=== PATIENT | female | born 1970 | race Caucasian/White ===

== ENCOUNTER 2018-08-20 05:41 | Day surgery (SDC) | payer BC, OTHER ==
[2018-08-20] MEDS ORDERED: LIDOCAINE 1% MDV 20ML VIAL SQ (06:00)
[2018-08-20 06:52] LABS: CONTROL LINE UCG INT CTR LINE PRESENT; URINE PREG TEST NEGATIVE (NEGATIVE)
[2018-08-20] MEDS: LR 1,000 ML IV (06:55)
[2018-08-20] MEDS: SCOPOLAMINE 1MG TRANSDERMAL PATCH TOP (07:05)
[2018-08-20] MEDS ORDERED: PROPOFOL 200 MG/20 ML VIAL As Ordered ×2 (07:19→08:23)
[2018-08-20] MEDS ORDERED: LIDOCAINE 2% INJ 100 MG/5 ML SDV (FOR ANES.) As Ordered (07:19)
[2018-08-20] MEDS ORDERED: MIDAZOLAM INJ 2 MG/2 ML VIAL (J2250) As Ordered (07:20)
[2018-08-20] MEDS ORDERED: fentaNYL 100 MCG/2 ML INJECTION (J3010) As Ordered (07:20)
[2018-08-20] MEDS ORDERED: dexameTHASONE 4 MG/ML 1ML VIAL (J1100) As Ordered (08:04)
[2018-08-20] MEDS ORDERED: ONDANSETRON 4MG/2ML VIAL (J2405) As Ordered (08:04)
[2018-08-20] MEDS: LIDOCAINE 1% SDV INJ 30 ML VIAL As Ordered (08:15)
[2018-08-20] MEDS: BUPIVACAINE HCL 0.5% 10 ML VIAL As Ordered (08:15)
[2018-08-20] MEDS: dexameTHASONE 4 MG/ML 1ML VIAL (J1100) As Ordered (08:28)
[2018-08-20] MEDS ORDERED: PERCOCET 5MG/325MG TAB As Ordered (09:01)
[2018-08-20] MEDS: PERCOCET 5MG/325MG TAB PO (09:10)
[2018-08-20] MEDS ORDERED: ONDANSETRON 4MG/2ML VIAL (J2405) IV (09:15)
[2018-08-20] MEDS ORDERED: LR 1,000 ML IV (09:15)
== END 2018-08-20 10:05 | disposition home or self-care (01) ==
LOC: M SDC 05:41
DX: M20.11 Hallux valgus (acquired), right foot (principal); M20.41 Other hammer toe(s) (acquired), right foot; Z86.718 Personal history of other venous thrombosis and embolism; F31.9 Bipolar disorder, unspecified; E66.9 Obesity, unspecified; Z79.899 Other long term (current) drug therapy
CPT/HCPCS: 28298

== ENCOUNTER 2019-03-18 09:57 | Day surgery (SDC) | payer BC, OTHER ==
[~2019-03-18] VITALS: Ht 172.7 cm; Wt 146.9 kg
[~2019-03-18 09:57] MED LIST: ALPR0.5T6 PO; ARIP1TAB10 PO; CLOT1CRE2 TOP; D3 22000 PO; HYDR-3713 PO; IBUP200T45 PO; KETOROLAC 60 MG/2 ML VIAL (J1885) As Ordered ONE; LEXA5TAB13 PO; LIDOCAINE 2% INJ 100 MG/5 ML SDV (FOR ANES.) As Ordered ONE; LR 1,000 ML IV ONE; MIDAZOLAM INJ 2 MG/2 ML VIAL (J2250) As Ordered ONE; MULT1TAB10 PO; MULTCAP PO; NASC1SPR; ONDANSETRON 4MG/2ML VIAL (J2405) As Ordered ONE; OS-CTAB PO; PROP60CA PO; PROPOFOL 200 MG/20 ML VIAL As Ordered ONE; fentaNYL 100 MCG/2 ML INJECTION (J3010) As Ordered ONE
[2019-03-18 10:52] LABS: URINE PREG TEST NEGATIVE (NEGATIVE)
[2019-03-18] MEDS ORDERED: SCOPOLAMINE 1MG TRANSDERMAL PATCH As Ordered ONE (11:06)
[2019-03-18] MEDS ORDERED: LIDOCAINE 1% MDV 20ML VIAL As Ordered ONE (11:11)
[2019-03-18] MEDS ORDERED: BUPIVACAINE HCL 0.5% 10 ML VIAL As Ordered ONE (11:11)
[2019-03-18] MEDS ORDERED: dexameTHASONE 4 MG/ML 1ML VIAL (J1100) As Ordered ONE (11:11)
[2019-03-18] MEDS ORDERED: SCOPOLAMINE 1MG TRANSDERMAL PATCH TOP ONE (11:15)
[2019-03-18] MEDS ORDERED: LIDOCAINE 2% MDV 20 ML VIAL As Ordered ONE (12:06)
[2019-03-18] MEDS ORDERED: HYDR-3713 PO (13:25)
--- NOTE | 2019-03-18 13:42 | RO ---
DATE OF PROCEDURE: 03/18/2019 PREPROCEDURE DIAGNOSES: Right flexor hallucis longus tendon rupture, right second interspace neuroma, and fifth toe hammertoe. POSTPROCEDURE DIAGNOSES: Right flexor hallucis longus tendon rupture, right second interspace neuroma, and fifth toe hammertoe. PROCEDURE: Right flexor hallucis tendon repair with Artelon augmentation, second interspace neuroma excision and fifth toe flexor tenotomy. SURGEON: Ramo Meneses DPM [employer]IN[employer] LOCOMOTIVE OPERATOR: ANESTHESIA: Monitored anesthesia care, preoperative injection of 20 mL of 1:1 mixture of 1% lidocaine plain and 0.5% Marcaine plain. ESTIMATED BLOOD LOSS: Minimal. MATERIALS: 4-0 FiberWire, 3-0 and 4-0 Vicryl, 4-0 and 3-0 nylon, Artelon size 0.5 cm. COMPLICATIONS: None. CONDITION: Stable. SPECIMENS: Second interspace neuroma. DESCRIPTION OF PROCEDURE: Kimberly Beauchamp is a 49-year-old female who presents to [facility] with flexor hallucis longus tendon rupture. She also has painful neuroma between her second and third toes and a hammertoe on the fifth toe that causes pain. She presents today for surgical correction. Patient, side and site were identified and marked in preoperative holding area. Consent was reviewed and obtained. All risks, complications and alternatives to the procedure were explained to the patient in detail and all questions were answered. DESCRIPTION OF PROCEDURE: The patient was brought to the operating room and placed on the operating room table in supine position. Monitored anesthesia care was delivered by the anesthesia team. Preoperative injection of 20 mL of 1:1 mixture of 1% lidocaine plain and 0.5% Marcaine plain was injected into the right foot. Right foot was prepped and drape in a sterile fashion. Tourniquet was applied to her ankle and inflated to 235 mmHg. Attention was first pad to the fifth toe. A stab incision was made under the inferior portion of the fifth toe and the flexor tendon was released using 15-blade. Improved position of the toe was noted. This incision was repaired with 4-0 nylon. Attention was paid to the second interspace. Dorsal incision was drawn at this location with 15 blade. Dissection was carried down until the metatarsal ligament was identified. This was transected. Bovie was used to cauterize small bleeding vessels along the way. The nerve was identified and cut both at its distal and proximal sections at the interspace and this was sent for pathology. Site was irrigated with normal saline. Deep closure was performed with 4-0 Vicryl and skin closure with 4-0 nylon. Attention was then paid to the hallux. Plantar incision was made using a 15 blade. The distal portion of the flexor tendon was identified, which was ruptured. Following the tendon sheath proximally, the proximal portion of the tendon was identified. There was 4 cm gaping. Due to the significance of gaping and fraying of the distal portions of the tendon, direct tendon repair was not possible. Using an Artelon tissue reinforced and size 0.5 cm, the tendons were reapproximated using the graft under good tension. The Artelon tendon was secured using 4.0 FiberWire and then the deep tendon sheath was repaired using 3-0 Vicryl. Deep closure was performed with 3-0 Vicryl and skin closure with 3-0 nylon. The site was cleansed with saline. Tourniquet was deflated. Sterile dressings were applied. The patient was brought to the postanesthesia care unit (PACU), awake, neurovascular status intact. She will be non weightbearing. She will followup in the office in 2 days.
[2019-03-18 14:19] VITALS: BP 130/69
== END 2019-03-18 14:35 | disposition home or self-care (01) ==
LOC: M SDC 09:57
PROVIDERS: ATTEND Podiatrist Foot & Ankle Surgery
DX: M20.41 Other hammer toe(s) (acquired), right foot (principal); G57.61 Lesion of plantar nerve, right lower limb; S96.001A Unspecified injury of muscle and tendon of long flexor muscle of toe at ankle and foot level, right foot, initial encounter; G47.30 Sleep apnea, unspecified; F41.9 Anxiety disorder, unspecified; F31.9 Bipolar disorder, unspecified; G43.909 Migraine, unspecified, not intractable, without status migrainosus; Z79.899 Other long term (current) drug therapy; Z86.718 Personal history of other venous thrombosis and embolism; Y92.9 Unspecified place or not applicable; Y93.9 Activity, unspecified
CPT/HCPCS: 28080; 28200; 28232; 84703; 88304; C1763; J0690; J1100; J1885; J2250; J2405; J3010